=== PATIENT | female | born 1950 | race Caucasian/White ===

== ENCOUNTER 2016-12-30 07:59 | Emergency (ER) | payer MEDICARE ==
[~2016-12-30] VITALS: Ht 162.6 cm; Wt 86.2 kg
[~2016-12-30 07:59] MED LIST: HYDR-971 PO
[2016-12-30] MEDS ORDERED: IV NORMAL SALINE 1000ML BAG 1,000 ML IV ONE (08:15)
--- NOTE | 2016-12-30 08:19 | PHYS DOC ---
Past Medical History Past Medical History: No Pertinent History Past Surgical History: Cholecystectomy, Tonsillectomy, Tubal ligation Additional Past Surgical Histo: HERNIA REPAIR; RT ANKLE REPAIR Alcohol Use: Rarely Drug Use: None Adult General Chief Complaint Chief Complaint: RECTAL BLEED HPI HPI Patient is a 66 year old female with no significant medical history who presents today complaining of rectal bleeding. Patient states she had a bowel movement this morning and wiped herself and noted blood on the toilet paper. She states the stool had brown stool with bright red blood as well. Patient denies any abdominal pain nausea vomiting. Denies any previous experience with rectal bleeding. Denies any fever. Patient took 6 tablets of Advil yesterday after stubbing her left toes. PCP Dr. Niki Nickerson. Review of Systems Review of Systems Constitutional: Denies fever or chills [] Eyes: Denies change in visual acuity, redness, or eye pain [] HENT: Denies nasal congestion or sore throat [] Respiratory: Denies cough or shortness of breath [] Cardiovascular: No additional information not addressed in HPI [] GI: Rectal bleeding : Denies dysuria or hematuria [] Musculoskeletal: Denies back pain or joint pain [] Integument: Denies rash or skin lesions [] Neurologic: Denies headache, focal weakness or sensory changes [] Endocrine: Denies polyuria or polydipsia [] Current Medications Current Medications Current Medications Medications (Trade) Dose Ordered Sig/Ludwig Start Time Stop Time Status Last Admin Dose Admin Clonidine HCl (Catapres) 0.2 mg 1X ONCE 12/30/16 08:45 12/30/16 08:46 DC 12/30/16 09:10 0.2 MG Famotidine (Pepcid) 20 mg 1X ONCE 12/30/16 08:45 12/30/16 08:46 DC 12/30/16 09:10 20 MG Info (Do NOT chart on this entry -- for MONITORING) 1 each PRN DAILY PRN 12/30/16 09:30 01/01/17 09:29 Iohexol (Omnipaque 300 Mg/ml) 75 ml 1X ONCE 12/30/16 09:30 12/30/16 09:31 DC Ondansetron HCl (Zofran) 4 mg 1X ONCE 12/30/16 08:45 12/30/16 08:46 DC Sodium Chloride 1,000 ml @ 1,000 mls/hr 1X ONCE 12/30/16 08:15 12/30/16 09:14 DC 12/30/16 09:09 1,000 MLS/HR Allergies Allergies Allergies Coded Allergies Type Severity Reaction Last Updated Verified cephalexin Allergy Severe Throat swelling 12/30/16 Yes Physical Exam Physical Exam Constitutional: Well developed, well nourished, no acute distress, non-toxic appearance. [] HENT: Normocephalic, atraumatic, bilateral external ears normal, oropharynx moist, no oral exudates, nose normal. [] Eyes: PERRLA, EOMI, conjunctiva normal, no discharge. [] Neck: Normal range of motion, no tenderness, supple, no stridor. [] Cardiovascular:Heart rate regular rhythm, no murmur [] Lungs & Thorax: Bilateral breath sounds clear to auscultation [] Abdomen: Bowel sounds normal, soft, no tenderness, no masses, no pulsatile masses. [] Skin: Warm, dry, no erythema, no rash. [] Back: No tenderness, no CVA tenderness. [] Extremities: No tenderness, no cyanosis, no clubbing, ROM intact, no edema. [] Neurologic: Alert and oriented X 3, normal motor function, normal sensory function, no focal deficits noted. [] Psychologic: Affect normal, judgement normal, mood normal. [] Current Patient Data Vital Signs Vital Signs Date Time Temp Pulse Resp B/P (MAP) Pulse Ox O2 Delivery O2 Flow Rate FiO2 12/30/16 09:10 69 208/84 12/30/16 09:07 30 95 Room Air 12/30/16 08:03 98.5 98.5 Lab Values Laboratory Tests Test 12/30/16 08:35 12/30/16 08:45 12/30/16 09:10 Urine Collection Type Void Urine Color Yellow Urine Clarity Clear Urine pH 5.5 Urine Specific [place] >=1.030 Urine Protein Negative mg/dL (NEG-TRACE) Urine Glucose (UA) Negative mg/dL (NEG) Urine Ketones (Stick) Negative mg/dL (NEG) Urine Blood Moderate (NEG) Urine Nitrite Negative (NEG) Urine Bilirubin Small (NEG) Urine Urobilinogen Dipstick 0.2 mg/dL (0.2 mg/dL) Urine Leukocyte Esterase Moderate (NEG) Urine RBC 6-10 /HPF (0-2) Urine WBC 5-10 /HPF (0-4) Urine Squamous Epithelial Cells Many /LPF Urine Bacteria Mod /HPF (0-FEW) Urine Mucus Mod /LPF Urine Opiates Screen Neg (NEG) Urine Methadone Screen Neg (NEG) Urine Barbiturates Neg (NEG) Urine Phencyclidine Screen Neg (NEG) Urine Amphetamine/Methamphetamine Neg (NEG) Urine Benzodiazepines Screen Neg (NEG) Urine Cocaine Screen Neg (NEG) Urine Cannabinoids Screen Neg (NEG) Urine Ethyl Alcohol Neg (NEG) White Blood Count 8.4 x10^3/uL (4.0-11.0) Red Blood Count 5.44 x10^6/uL (3.50-5.40) H Hemoglobin 14.7 g/dL (12.0-15.5) Hematocrit 45.9 % (36.0-47.0) Mean Corpuscular Volume 84 fL (79-100) Mean Corpuscular Hemoglobin 27 pg (25-35) Mean Corpuscular Hemoglobin Concent 32 g/dL (31-37) Red Cell Distribution Width 13.6 % (11.5-14.5) Platelet Count 218 x10^3/uL (140-400) Neutrophils (%) (Auto) 64 % (31-73) Lymphocytes (%) (Auto) 27 % (24-48) Monocytes (%) (Auto) 5 % (0-9) Eosinophils (%) (Auto) 4 % (0-3) H Basophils (%) (Auto) 1 % (0-3) Neutrophils # (Auto) 5.4 x10^3uL (1.8-7.7) Lymphocytes # (Auto) 2.3 x10^3/uL (1.0-4.8) Monocytes # (Auto) 0.4 x10^3/uL (0.0-1.1) Eosinophils # (Auto) 0.3 x10^3/uL (0.0-0.7) Basophils # (Auto) 0.1 x10^3/uL (0.0-0.2) Sodium Level 143 mmol/L (136-145) Potassium Level 4.6 mmol/L (3.5-5.1) Chloride Level 108 mmol/L (98-107) H Carbon Dioxide Level 26 mmol/L (21-32) Anion Gap 9 (6-14) Blood Urea Nitrogen 15 mg/dL (7-20) Creatinine 0.9 mg/dL (0.6-1.0) Estimated GFR (Cockcroft-Gault) 62.6 BUN/Creatinine Ratio 17 (6-20) Glucose Level 137 mg/dL (70-99) H Calcium Level 8.5 mg/dL (8.5-10.1) Total Bilirubin 0.5 mg/dL (0.2-1.0) Aspartate Amino Transferase (AST) 16 U/L (15-37) Alanine Aminotransferase (ALT) 21 U/L (14-59) Alkaline Phosphatase 88 U/L (46-116) Total Protein 7.4 g/dL (6.4-8.2) Albumin 3.7 g/dL (3.4-5.0) Albumin/Globulin Ratio 1.0 (1.0-1.7) Lipase 162 U/L (73-393) Ethyl Alcohol Level < 10 mg/dL (0-10) Stool Occult Blood Positive (NEG) Laboratory Tests 12/30/16 08:45 Laboratory Tests 12/30/16 08:45 EKG EKG [] Radiology/Procedures Radiology/Procedures [] Course & Med Decision Making Course & Med Decision Making Pertinent Labs and Imaging studies reviewed. (See chart for details) This is a 66-year-old female patient with no medical history who presents today with rectal bleeding noted on toilet paper as well as brown stool with blood in the toilet. Patient took 6 tablets of Advil yesterday after stubbing her left toes. CBC with a hemoglobin of 14.7, hematocrit 45.9. BUN and creatinine were normal. Positive Hemoccult. Patient had another bowel movement in the ED she stated this one was brown in color with specks of bright red blood. I consulted with Elisa and Dr. Carmona GI. He stated patient can be discharged and follow-up with the clinic. Patient was discharged with instructions not to take any NSAIDs. Tylenol was recommended for pain. Patient's blood pressure was 203/102 on arrival to the ED. Patient has no history of hypertension but states she has not seen her PCP for 1 year. She does not have any neurological or cardiac symptoms right now. We gave her clonidine in the ED. Blood pressure came down to 188/87, HR in the 60s to 80s. Temperature 98.5, O2 sats 97% on room air, respiration 20. Patient is in no distress and was discharged in stable condition. She was instructed to return to the ED at any point symptoms worsen especially if she starts having garry blood in her stools. Dragon Disclaimer Dragon Disclaimer This electronic medical record was generated, in whole or in part, using a voice recognition dictation system. Departure Departure Impression: Primary Impression: Rectal bleed Additional Impression: Accelerated hypertension Disposition: 01 HOME, SELF-CARE Condition: STABLE Referrals: NIKI NICKERSON MD (PCP) Call the primary care doctor as soon as possible for follow-up with her blood pressure GRACIE CARMONA MD Follow-up with the GI doctor provided by calling the office today for follow-up appointment Patient Instructions: Rectal Bleeding, [id number] Additional Instructions: You were seen for rectal bleeding. This appears to be NSAIDs-induced rectal bleeding. DO NOT TAKE NSAIDS INCLUDING ALEVE, ADVIL, ASPIRIN. TAKE TYLENOL FOR PAIN. Your hemoglobin was 14.7 with hematocrit of 45.9. Blood pressure was 188/ 87 which is high. Normal blood pressure was 120/80 or less. Please call your doctor today and set up a follow up appointment for high blood pressure. Take protonix or omeprazole daily until seen by the GI doctor we provided. Call the GI doctor as soon as you can for follow up appointment. Scripts Pantoprazole Sodium (PROTONIX) 20 Mg Tablet. 1 TAB PO DAILY, #30 TAB Prov: LETICIA CROW APRN 12/30/16 Problem Qualifiers LETICIA CROW APRN Dec 30, 2016 08:19
[2016-12-30] MEDS ORDERED: FAMOTIDINE 20 MG/2 ML VIAL IVP ONE (08:45)
[2016-12-30] MEDS ORDERED: ONDANSETRON PF 4 MG/2 ML VIAL. IV ONE (08:45)
[2016-12-30] MEDS ORDERED: cloNIDine HCL 0.1 MG TABLET PO ONE (08:45)
[2016-12-30 09:04] LABS: BASO # 0.1 x10^3/uL (0.0-0.2); BASO % 1 % (0-3); EOS % 4 % (0-3); HEMATOCRIT 45.9 % (36.0-47.0); HEMOGLOBIN 14.7 g/dL (12.0-15.5); LYMPH # 2.3 x10^3/uL (1.0-4.8); LYMPH % 27 % (24-48); MEAN CORPUSCULAR HEMOGLOBIN 27 pg (25-35); MEAN CORPUSCULAR HGB CONC 32 g/dL (31-37); MEAN CORPUSCULAR VOLUME 84 fL (79-100); MONO % 5 % (0-9); NEUT % 64 % (31-73); PLATELET COUNT 218 x10^3/uL (140-400); RED BLOOD COUNT 5.44 x10^6/uL (3.50-5.40); RED CELL DISTRIBUTION WIDTH 13.6 % (11.5-14.5); WHITE BLOOD COUNT 8.4 x10^3/uL (4.0-11.0)
[2016-12-30 09:08] LABS: BILIRUBIN,URINE SMALL (NEG); GLUCOSE,URINE NEGATIVE (NEG); NITRITE,URINE NEGATIVE (NEG); PH,URINE 5.5; PROTEIN,URINE NEGATIVE (NEG-TRACE); UROBILINOGEN,URINE 0.2 mg/dL (0.2 mg/dL)
[2016-12-30 09:11] LABS: CALCIUM 8.5 mg/dL (8.5-10.1); CREATININE 0.9 mg/dL (0.6-1.0); GFR 62.6; POTASSIUM 4.6 mmol/L (3.5-5.1)
[2016-12-30 09:12] LABS: BARBITURATES NEG (NEG); BENZODIAZEPINES NEG (NEG); CANNABINOIDS NEG (NEG); COCAINE NEG (NEG); METHADONE NEG (NEG); OPIATES NEG (NEG); PHENCYCLIDINE NEG (NEG)
[2016-12-30 09:16] LABS: ALBUMIN 3.7 g/dL (3.4-5.0); TOTAL BILIRUBIN 0.5 mg/dL (0.2-1.0); TOTAL PROTEIN 7.4 g/dL (6.4-8.2)
[2016-12-30 09:21] LABS: SQUAMOUS EPITHELIAL CELL,UR MANY /LPF
[2016-12-30 09:22] LABS: BACTERIA,URINE MOD /HPF (0-FEW)
[2016-12-30 09:26] LABS: NEG OBC FOB NEG; POS OBC FOB POS
[2016-12-30] MEDS ORDERED: CONTRAST GIVEN MC PRN (09:30)
[2016-12-30] MEDS ORDERED: IOHEXOL 300 MG/ML 75 ML VIAL IV ONE (09:30)
[2016-12-30] MEDS ORDERED: PANT20TA2 PO (10:16)
[2016-12-30 10:26] VITALS: BP 137/60
== END 2016-12-30 10:44 | disposition home or self-care (01) ==
LOC: ER 07:59
DX: K62.5 Hemorrhage of anus and rectum (principal); I10 Essential (primary) hypertension; Z88.1 Allergy status to other antibiotic agents
CPT/HCPCS: 36415; 80053; 80307; 81001; 82274; 83690; 85027; 86850; 86900; 86901; 96361; 96374; 99285; G0480; J7030; S0028; G0479

== ENCOUNTER → 2017-05-17 | Outpatient (CLI) | payer MEDICARE ==
[2017-04-18 10:40] VITALS: BP 138/80
[~2017-05-17] MED LIST changes: +APIX5TAB PO; +ATOR20TA PO; +DILT180C29 PO; +FLUT9.9S NS; +LEVO25TA4 PO; +METO25TA4 PO; +MULT-299 PO; +PANT20TA2 PO; +PROVENTIL HFA6.7 GM IH
[2017-05-17 11:22] LABS: CREATININE 1.1 mg/dL (0.6-1.0); GFR 49.7; POTASSIUM 4.7 mmol/L (3.5-5.1)
== END | disposition home or self-care (01) ==
LOC: LAB 10:52
PROVIDERS: ATTEND Internal Medicine Cardiovascular Disease
DX: R60.9 Edema, unspecified (principal); R25.2 Cramp and spasm
CPT/HCPCS: 36415; 80048; 83735

== ENCOUNTER 2017-06-21 10:29 | Day surgery (SDC) | payer MEDICARE ==
[~2017-06-21 10:29] MED LIST changes: -APIX5TAB PO; -ATOR20TA PO; -DILT180C29 PO; -FLUT9.9S NS; -HYDR-971 PO; +HYDROmorphone 2 MG/ML VIAL IV; -LEVO25TA4 PO; +LIDOCAINE 1% PF 2 ML VIAL. ID; -METO25TA4 PO; +MORPHINE SULFATE 2 MG/ML DISP.SYRIN. IV; -MULT-299 PO; +ONDANSETRON PF 4 MG/2 ML VIAL. IV; -PANT20TA2 PO; +PROCHLORPERAZINE 10 MG/2 ML VIAL. IV; -PROVENTIL HFA6.7 GM IH; +fentaNYL PF VIAL 100 MCG/2 ML VIAL IV
[2017-06-21] MEDS: IV RINGERS,LACTATED 1000ML 1,000 ML IV (11:15)
== END 2017-06-21 13:45 | disposition home or self-care (01) ==
LOC: SURG 10:29
DX: I48.91 Unspecified atrial fibrillation (principal); I10 Essential (primary) hypertension; E78.00 Pure hypercholesterolemia, unspecified; E03.9 Hypothyroidism, unspecified; F32.9 Major depressive disorder, single episode, unspecified; Z90.49 Acquired absence of other specified parts of digestive tract; Z98.51 Tubal ligation status; Z87.39 Personal history of other diseases of the musculoskeletal system and connective tissue; F17.200 Nicotine dependence, unspecified, uncomplicated; Z86.39 Personal history of other endocrine, nutritional and metabolic disease; Z72.89 Other problems related to lifestyle; Z88.1 Allergy status to other antibiotic agents; Z91.048 Other nonmedicinal substance allergy status
CPT/HCPCS: 92960; 93005

== ENCOUNTER → 2017-07-02 | Outpatient (CLI) | payer MEDICARE ==
[2017-07-02] MEDS: REGADENOSON 0.4 MG/5 ML DISP.SYRIN. IV (09:23)
== END | disposition home or self-care (01) ==
LOC: NM 07:56
DX: I48.91 Unspecified atrial fibrillation (principal); I10 Essential (primary) hypertension
CPT/HCPCS: 78452; 93017; 96374; 96375; 96376; A9500; J2785

== ENCOUNTER → 2017-07-12 | Day surgery (SDC) | payer MEDICARE ==
[~2017-07-12] MED LIST changes: +0.9 % SODIUM CHLORIDE 10 ML DISP.SYRIN. IV; -HYDROmorphone 2 MG/ML VIAL IV; +IV RINGERS,LACTATED 1000ML 1,000 ML IV; -LIDOCAINE 1% PF 2 ML VIAL. ID; -MORPHINE SULFATE 2 MG/ML DISP.SYRIN. IV; -ONDANSETRON PF 4 MG/2 ML VIAL. IV; -PROCHLORPERAZINE 10 MG/2 ML VIAL. IV; -fentaNYL PF VIAL 100 MCG/2 ML VIAL IV
== END | disposition home or self-care (01) ==
LOC: SURG 10:00
DX: I48.91 Unspecified atrial fibrillation (principal)
CPT/HCPCS: 93005

== ENCOUNTER 2017-11-05 10:34 | Day surgery (SDC) | payer MEDICARE ==
[~2017-11-05 10:34] MED LIST changes: -0.9 % SODIUM CHLORIDE 10 ML DISP.SYRIN. IV; +LIDOCAINE 1% PF 2 ML VIAL. ID; +MORPHINE SULFATE 4 MG/ML DISP.SYRIN. IV; +ONDANSETRON PF 4 MG/2 ML VIAL. IV; +PROCHLORPERAZINE 10 MG/2 ML VIAL. IV; +fentaNYL PF VIAL 100 MCG/2 ML VIAL IV
[2017-11-05 11:10] LABS: POC GLUCOSE 137 mg/dL (70-99)
[2017-11-05] MEDS: IV RINGERS,LACTATED 1000ML 1,000 ML IV (11:15)
[2017-11-05] MEDS ORDERED: BENZOCAINE ONE 20% MUCOSAL SPRAY. (11:24)
[2017-11-05] MEDS ORDERED: LIDOCAINE 2% TOPICAL JELLY 5GM TUBE. TP (11:24)
[2017-11-05] MEDS ORDERED: LIDOCAINE 2% VISCOUS 15 ML SOLUTION. (11:24)
== END 2017-11-05 13:40 | disposition home or self-care (01) ==
LOC: SURG 10:34
DX: I48.0 Paroxysmal atrial fibrillation (principal); I08.1 Rheumatic disorders of both mitral and tricuspid valves; E78.00 Pure hypercholesterolemia, unspecified; I10 Essential (primary) hypertension; Z86.010 Personal history of colon polyps; Z90.49 Acquired absence of other specified parts of digestive tract; K21.9 Gastro-esophageal reflux disease without esophagitis; Z98.51 Tubal ligation status; E11.9 Type 2 diabetes mellitus without complications; E03.9 Hypothyroidism, unspecified; F32.9 Major depressive disorder, single episode, unspecified; Z87.891 Personal history of nicotine dependence; Z88.1 Allergy status to other antibiotic agents; Z91.048 Other nonmedicinal substance allergy status; Z98.1 Arthrodesis status; Z79.899 Other long term (current) drug therapy; Z79.84 Long term (current) use of oral hypoglycemic drugs; Z98.890 Other specified postprocedural states; Z82.49 Family history of ischemic heart disease and other diseases of the circulatory system; Z72.89 Other problems related to lifestyle
CPT/HCPCS: 82962; 93312; 93320; 93325

== ENCOUNTER → 2019-11-30 | Outpatient (CLI) | payer BC, MEDICARE, OTHER ==
[2017-11-05 13:39] VITALS: BP 129/58
[~2019-11-30] MED LIST changes: +APIX5TAB PO; +ATOR20TA PO; +DILT180C29 PO; +FLEC100T PO; +FLUT9.9S NS; +HYDR-3164 PO; +HYDR12.58 PO; -IV RINGERS,LACTATED 1000ML 1,000 ML IV; +LEVO25TA4 PO; -LIDOCAINE 1% PF 2 ML VIAL. ID; +METO25TA4 PO; +METO50TA6 PO; -MORPHINE SULFATE 4 MG/ML DISP.SYRIN. IV; +MULT-299 PO; -ONDANSETRON PF 4 MG/2 ML VIAL. IV; +PANT20TA2 PO; +PANT40TA77 PO; -PROCHLORPERAZINE 10 MG/2 ML VIAL. IV; +PROVENTIL HFA6.7 GM IH; -fentaNYL PF VIAL 100 MCG/2 ML VIAL IV
--- NOTE | 2019-11-30 09:40 | KCIC ---
EXAM: Dual energy x-ray absorptiometry (DEXA). HISTORY: Postmenopausal female presents for osteoporosis screening. COMPARISON: None. TECHNIQUE: Dual energy x-ray absorptiometry of the lumbar spine and left hip was performed. Calculation of bone mineral density based on standard deviations above or below the expected young adult normal value (T-score) was completed. FINDINGS: The average bone mineral density in the 1st through 4th lumbar vertebrae is 1.114 g/cmxcm, corresponding with a T-score of 0.6. The average total bone mineral density in the left hip is 0.774 g/cmxcm, corresponding with a T-score of -1.4. IMPRESSION: 1. Normal bone mineral density measured at the lumbar spine 2. Osteopenia measured at the left hip. Note: Definitions established by the World Health Organization: 1. Normal: T-score is -1.0 or above. 2. Osteopenia: T-score is between -1.0 and -2.5 . 3. Osteoporosis: T-score is -2.5 or below. Electronically signed by: Francisca Mendez MD (11/30/2019 9:37 AM) [id number]
--- NOTE | 2019-11-30 10:26 | KCIC ---
Bilateral digital screening mammograms: Reason for examination: Routine screening. Comparison is made to previous study dated 04/05/2013. Interpretation was made with the benefit of CAD. The skin and nipples show no abnormalities. No abnormal axillary lymph nodes are seen. The breast parenchyma shows scattered fibroglandular density. (Breast density: Category B.) There continues to be some asymmetric parenchyma at the 9:30 position posteriorly in the right breast which is less prominent than on previous exam consistent with some parenchymal involution. There continues be a small circumscribed lesion anterior medially in the left breast seen on CC view only which is stable. There are no new dominant masses, suspicious calcifications or architectural distortions. Impression: No evidence of malignancy. Recommend routine screening. BI-RADS Category 2: Benign. "Our facility is accredited by the [employer] Mammography Program." This patient's information has been entered into a reminder system for the patient to be notified with the results of her examination and a target date for the next mammogram. Electronically signed by: Neha Medeiros MD (11/30/2019 10:23 AM) [email or web address]
== END | disposition home or self-care (01) ==
LOC: KCIC MAMMO 09:11
PROVIDERS: ATTEND Nurse Practitioner
DX: Z12.31 Encounter for screening mammogram for malignant neoplasm of breast (principal); N64.89 Other specified disorders of breast; M85.88 Other specified disorders of bone density and structure, other site
CPT/HCPCS: 77067; 77080